=== PATIENT | female | born 1990 | race American Indian/Alaskan Native ===

== ENCOUNTER 2018-10-27 21:38 | Emergency (ER) | payer MEDICAID ==
--- NOTE | 2018-10-27 21:48 | Emergency Department Report ---
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 Due to findings the following was ordered: ED Disposition for MSE Condition: Stable
[2018-10-27] MEDS ORDERED: VISTARIL PO ONE (21:49)
[2018-10-27 22:21] LABS: Basophils # (Auto) 0.1 K/mm3 (0.0-0.1); Basophils % (Auto) 1.1 % (0.0-1.8); Eosinophils # (Auto) 0.3 K/mm3 (0.0-0.4); Eosinophils % (Auto) 5.1 % (0.0-4.3); Hematocrit 36.3 % (30.3-42.9); Hemoglobin 12.7 gm/dl (10.1-14.3); Lymphocytes # (Auto) 2.4 K/mm3 (1.2-5.4); Mean Corpuscular HGB Conc 35 % (30-34); Mean Corpuscular Volume 87 fl (79-97); Monocytes # (Auto) 0.3 K/mm3 (0.0-0.8); Monocytes % (Auto) 5.9 % (0.0-7.3); Platelet Count 273 K/mm3 (140-440); Red Blood Count 4.19 M/mm3 (3.65-5.03); Red Cell Distribution Width 14.9 % (13.2-15.2)
[2018-10-27 22:29] LABS: BUN/Creatinine Ratio 11; Blood Urea Nitrogen 8 mg/dL (7-17); Calcium 9.1 mg/dL (8.4-10.2); Hemolysis Index 14
[2018-10-27 23:53] LABS: Bacteria,Urine 1+ /HPF (Negative); Bilirubin,Urine NEG (Negative); Blood,Urine SM (Negative); Color,Urine Straw (Yellow); Mucus,Urine FEW /HPF; Protein,Urine <15 mg/dL mg/dL (Negative); Urobilinogen,Urine < 2.0 mg/dL (<2.0)
[2018-10-27 23:56] LABS: HCG Qualitative,Urine Negative (Negative)
--- NOTE | 2018-10-28 02:35 | Emergency Department Report ---
<DRAKE SETH - Last Filed: 10/28/18 02:30> ED General Adult HPI - General Chief complaint: Anxiety Stated complaint: PANIC ATTACK WOO Time Seen by Provider: 10/27/18 21:41 Source: patient Mode of arrival: Ambulatory Limitations: No Limitations - History of Present Illness Initial comments: A 28-year-old -[place] female presents to the emergency department complaining of what she feels like is an exacerbation of a panic/anxiety attack, which spontaneously occurred after returning from [place] today. She reports having some issues of feeling stressed and also some issues with some Entiat just been occurring off and on over the past several months. Currently she isn't having some relationship issues for which she is having counseling with her and also is caring for a [id number] child. She is also a head boys golf coach. States that has a high stress situation and quite a few other things which are sick. Her causing her to have some anxiety. Reports no suicidal or homicidal ideation. No self medicating with illicit drugs or other people's prescription drugs. Reports no fever, chills, sweats, nausea, vomiting, recurrent. When issues occurred area. She says chest tightness, palpitations and days since sensation of extreme worry for about 10-15 minutes before spontaneously resolved. -: Sudden Radiation: non-radiation Severity scale (0 -10): 0 Improves with: none Worsens with: none - Related Data Previous Rx's Medication Instructions Recorded Last Taken Type ALPRAZolam [Xanax TAB] 0.25 mg PO BID PRN #10 tab 10/28/18 Unknown Rx Allergies Allergy/AdvReac Type Severity Reaction Status Date / Time doxycycline Allergy Unknown Verified 10/27/18 21:52 ED Review of Systems Constitutional: denies: chills, fever Eyes: denies: eye pain, eye discharge, vision change ENT: denies: ear pain, throat pain Respiratory: denies: cough, shortness of breath, wheezing Cardiovascular: denies: chest pain, palpitations Endocrine: no symptoms reported Gastrointestinal: denies: abdominal pain, nausea, diarrhea Genitourinary: denies: urgency, dysuria, discharge Musculoskeletal: denies: back pain, joint swelling, arthralgia Skin: denies: rash, lesions Neurological: denies: headache, weakness, paresthesias Psychiatric: anxiety. denies: depression Hematological/Lymphatic: denies: easy bleeding, easy bruising ED Past Medical Hx - Past Medical History Previous Medical History?: No - Surgical History Past Surgical History?: No - Social History Smoking Status: Never Smoker Substance Use Type: None - Medications Home Medications: Home Medications Medication Instructions Recorded Confirmed Last Taken Type ALPRAZolam [Xanax TAB] 0.25 mg PO BID PRN #10 tab 10/28/18 Unknown Rx ED Physical Exam - General Limitations: No Limitations General appearance: alert, in no apparent distress - Head Head exam: Present: atraumatic, normocephalic - Eye Eye exam: Present: normal appearance - ENT ENT exam: Present: mucous membranes moist - Neck Neck exam: Present: normal inspection - Respiratory Respiratory exam: Present: normal lung sounds bilaterally. Absent: respiratory distress - Cardiovascular Cardiovascular Exam: Present: regular rate, normal rhythm. Absent: systolic murmur, diastolic murmur, rubs, gallop - GI/Abdominal GI/Abdominal exam: Present: soft, normal bowel sounds - Extremities Exam Extremities exam: Present: normal inspection - Back Exam Back exam: Present: normal inspection - Neurological Exam Neurological exam: Present: alert, oriented X3 - Psychiatric Psychiatric exam: Present: normal affect, normal mood - Skin Skin exam: Present: warm, dry, intact, normal color. Absent: rash ED Medical Decision Making - Lab Data Result diagrams: 10/27/18 22:08 10/27/18 22:08 - Medical Decision Making 8-year-old female laboratory data was normal, anxiety or was improved with Vistaril. She did speak with the with the mental health counselor who deemed her safe to go home and follow-up with outpatient resources. We'll give her some temporary medication the last 4 her outbreaks, which apparently become coming more frequent. Discussed with the above destress ED Disposition Clinical Impression: Anxiety, Panic attack Disposition: DC-01 TO HOME OR SELFCARE Condition: Stable Instructions: Stress (ED) Prescriptions: ALPRAZolam [Xanax TAB] 0.25 mg PO BID PRN #10 tab PRN Reason: Anxiety Referrals: [facility] family, [facility] [Other] - 3-5 Days Forms: Work/School Release Form(ED) <VICENTE TELLEZ - Last Filed: 10/31/18 07:01> ED Review of Systems ROS: Stated complaint: PANIC ATTACK WOO Other details as noted in HPI ED Course Vital Signs 10/27/18 10/27/18 10/28/18 21:44 21:49 02:53 Temperature 98.1 F 98.1 F Pulse Rate 85 88 88 Respiratory 18 18 16 Rate Blood Pressure 132/88 132/88 Blood Pressure 125/75 [Left] O2 Sat by Pulse 100 99 100 Oximetry ED Medical Decision Making - Lab Data Result diagrams: 10/27/18 22:08 10/27/18 22:08 Critical care attestation.: If time is entered above; I have spent that time in minutes in the direct care of this critically ill patient, excluding procedure time. ED Disposition Is pt being admited?: No Does the pt Need Aspirin: No
[2018-10-28 03:33] VITALS: BP 125/75
== END 2018-10-28 02:53 | disposition home or self-care (01) ==
LOC: ED 21:38
DX: F41.9 Anxiety disorder, unspecified (principal); F41.0 Panic disorder [episodic paroxysmal anxiety]; F43.0 Acute stress reaction
CPT/HCPCS: 36415; 80048; 81001; 81025; 84443; 85025; 93005; 93010; Q0177